=== PATIENT | female | born 1990 | race Caucasian/White ===

== ENCOUNTER 2019-05-29 17:29 | Emergency (ER) | payer MEDICAID ==
[~2019-05-29] VITALS: Ht 165.1 cm; Wt 57.6 kg
[2019-05-29 18:10] LABS: Basophils # (auto) 0 10 ^3/uL (0-0.2); Basophils % (auto) 0.3 % (0.0-2.0); Eosinophils # (auto) 0.1 10 ^3/uL (0-0.8); Eosinophils % (auto) 1.1 % (0.0-7.0); Hematocrit 39.2 % (36.0-46.0); Hemoglobin 12.8 g/dL (12.2-16.2); Lymphocytes # (auto) 2.5 10 ^3/uL (0.4-5.4); Lymphocytes % (auto) 20.7 % (10.0-50.0); Mean Corpuscular Hemoglobin 29.5 pg (28.0-32.0); Mean Corpuscular Hgb Conc. 32.7 g/dL (32.0-36.0); Mean Corpuscular Volume 90.2 fL (80.0-100.0); Neutrophils # (auto) 8.5 10 ^3/uL (1.6-8.6); Neutrophils % (auto) 69.9 % (37.0-80.0); Nucleated Red Blood Cells % 0.1 %; Platelet Count (auto) 329 10^3/uL (140-450); Red Blood Cells 4.34 10^6/uL (4.0-5.20); Red Cell Distribution Width 12.7 % (11.8-14.3); White Blood Cell 12.1 10^3/uL (4.4-10.8)
[2019-05-29 20:00] VITALS: BP 108/64
== END 2019-05-29 20:19 | disposition home or self-care (01) ==
LOC: ER 17:29
DX: O20.0 Threatened abortion (principal); Z3A.08 8 weeks gestation of pregnancy
CPT/HCPCS: 36415; 76801; 84702; 85025

== ENCOUNTER 2019-06-29 10:45 | Day surgery (SDC) | payer MEDICAID ==
[2019-06-26 15:12] LABS: Basophils # (auto) 0 10 ^3/uL (0-0.2); Basophils % (auto) 0.3 % (0.0-2.0); Eosinophils # (auto) 0.1 10 ^3/uL (0-0.8); Eosinophils % (auto) 1.1 % (0.0-7.0); Hematocrit 36.7 % (36.0-46.0); Hemoglobin 12.4 g/dL (12.2-16.2); Lymphocytes # (auto) 2.1 10 ^3/uL (0.4-5.4); Mean Corpuscular Hemoglobin 30.4 pg (28.0-32.0); Mean Corpuscular Hgb Conc. 33.9 g/dL (32.0-36.0); Mean Corpuscular Volume 89.7 fL (80.0-100.0); Neutrophils # (auto) 7.6 10 ^3/uL (1.6-8.6); Neutrophils % (auto) 70.6 % (37.0-80.0); Nucleated Red Blood Cells % 0.1 %; Platelet Count (auto) 300 10^3/uL (140-450); Red Blood Cells 4.09 10^6/uL (4.0-5.20); Red Cell Distribution Width 12.8 % (11.8-14.3); White Blood Cell 10.8 10^3/uL (4.4-10.8)
[2019-06-26 15:22] LABS: Urine Bacteria MANY /hpf (None Seen); Urine Blood TRACE /uL (Negative); Urine Mucus FEW (None Seen); Urine Specific Gravity 1.019 (1.001-1.035); Urine WBC 3 /hpf (0 - 5)
[2019-06-26 15:26] LABS: Partial Thromboplastin Time 26.3 sec (23.64-32.05)
[2019-06-26 15:29] LABS: Albumin 3.7 g/dL (3.4-5.0); Calcium 8.8 mg/dL (8.5-10.1); Potassium 3.4 mmol/L (3.5-5.1)
[2019-06-26 15:32] LABS: BUN/Creatinine Ratio 14.8; Bilirubin, Total 0.2 mg/dL (0.2-1.0); Total Protein 8.4 g/dL (6.4-8.2)
[~2019-06-29] VITALS: Ht 165.1 cm; Wt 58.5 kg
[~2019-06-29 10:45] MED LIST: PREN-96 PO
[2019-06-29] MEDS ORDERED: ceFAZolin 1GM/50ML 50 ML IV ONE (10:58)
[2019-06-29] MEDS ORDERED: ONDANSETRON HCL 4 MG/2 ML VIAL IV PRN (15:30)
[2019-06-29] MEDS ORDERED: LABETALOL HCL 5 MG/ML 4ML SYRINGE IV PRN (15:30)
[2019-06-29] MEDS ORDERED: ePHEDrine SULFATE 50 MG/ML AMP IV PRN (15:30)
[2019-06-29 18:35] VITALS: BP 113/70
== END 2019-06-29 19:10 | disposition home or self-care (01) ==
LOC: SUR 10:45
PROVIDERS: ATTEND Specialist
DX: M53.82 Other specified dorsopathies, cervical region (principal); O34.30 Maternal care for cervical incompetence, unspecified trimester; Z3A.13 13 weeks gestation of pregnancy; Z98.890 Other specified postprocedural states
CPT/HCPCS: 36415; 59320; 76801; 80053; 81001; 85025; 85610; 85730; 86850; 86900; 86901; J0690; J7030

== ENCOUNTER 2019-08-06 14:10 | Inpatient (IN) | payer MEDICAID ==
[~2019-08-06] VITALS: Ht 165.1 cm; Wt 61.7 kg
[2019-08-06 14:53] LABS: Basophils # (auto) 0.1 10 ^3/uL (0-0.2); Basophils % (auto) 0.5 % (0.0-2.0); Eosinophils # (auto) 0.2 10 ^3/uL (0-0.8); Eosinophils % (auto) 0.9 % (0.0-7.0); Hematocrit 33.7 % (36.0-46.0); Hemoglobin 11.5 g/dL (12.2-16.2); Lymphocytes # (auto) 3.3 10 ^3/uL (0.4-5.4); Lymphocytes % (auto) 16.6 % (10.0-50.0); Mean Corpuscular Hemoglobin 30.4 pg (28.0-32.0); Mean Corpuscular Hgb Conc. 34.1 g/dL (32.0-36.0); Mean Corpuscular Volume 89.2 fL (80.0-100.0); Monocytes % (auto) 10.3 % (0.0-12.0); Neutrophils # (auto) 14.2 10 ^3/uL (1.6-8.6); Neutrophils % (auto) 71.7 % (37.0-80.0); Platelet Count (auto) 316 10^3/uL (140-450); Red Blood Cells 3.78 10^6/uL (4.0-5.20); Red Cell Distribution Width 12.8 % (11.8-14.3); White Blood Cell 19.8 10^3/uL (4.4-10.8)
[2019-08-06 15:12] LABS: Albumin 3.4 g/dL (3.4-5.0); Calcium 8.7 mg/dL (8.5-10.1); Potassium 3.2 mmol/L (3.5-5.1)
[2019-08-06 15:15] LABS: Bilirubin, Total 0.2 mg/dL (0.2-1.0); Total Protein 8.1 g/dL (6.4-8.2)
[2019-08-06] MEDS ORDERED: SODIUM CHLORIDE 0.9% 1,000 ML IVB ONE (15:15)
[2019-08-06 15:40] LABS: INR 0.99 (0.9-1.15); Partial Thromboplastin Time 25.9 sec (23.64-32.05)
[2019-08-06] MEDS ORDERED: PROMETHAZINE HCL 25 MG/ML 1ML IV ONE (16:30)
[2019-08-06] MEDS ORDERED: BUTORPHANOL TARTRATE 2 MG/1 ML VIAL IV ONE (16:30)
[2019-08-06] MEDS ORDERED: LACT. RINGERS/OXYTOCIN 20UNITS 1,000 ML IV SCH (16:45)
[2019-08-06 17:13] LABS: Urine Bacteria NONE SEEN /hpf (None Seen); Urine Blood 2+ /uL (Negative); Urine Specific Gravity 1.003 (1.001-1.035); Urine WBC 2 /hpf (0 - 5)
[2019-08-06 17:30] LABS: Alcohol, Urine < 3.0 mg/dL (0-10); Amphetamine Screen, Urine NEGATIVE (NEGATIVE); Barbiturate Scree,Urine NEGATIVE (NEGATIVE); Benzodiazephine Screen, Urine NEGATIVE (NEGATIVE); Cannabinoid Screen, Urine NEGATIVE (NEGATIVE); Cocaine Screen, Urine NEGATIVE (NEGATIVE); Opiate Scree,Urine NEGATIVE (NEGATIVE); Phencyclidine Screen, Urine NEGATIVE (NEGATIVE)
[2019-08-06] MEDS ORDERED: LACTATED RINGER'S 1,000 ML IV SCH (17:42)
[2019-08-06] MEDS ORDERED: WITCH HAZEL-GLYCERIN PAD TOP PRN (17:45)
[2019-08-06] MEDS ORDERED: LIDOCAINE 2%HCL (LOCAL ANESTH.) INJ 20ML MDV ID ONE (17:45)
[2019-08-06] MEDS ORDERED: DERMOPLAST 60ML BOTTLE TOP PRN (17:45)
[2019-08-06] MEDS ORDERED: PHISODERM TOP SOLN 240ML BTL TOP PRN (17:45)
[2019-08-06] MEDS: IBUPROFEN 600 MG TAB PO PRN (19:04)
--- NOTE | 2019-08-06 20:01 | NUR ---
Call placed to [facility], spoke with Lovely
--- NOTE | 2019-08-06 20:30 | NUR ---
Ambulation: Patient OOB with standby assistance by RN. Patient ambulated to bathroom with steady gait. Patient able to void second time 600ml without difficulty, Patient had first void on bedpan at 1845. Pericare teaching provided with returned demonstration by patient. Clean gown provided and bed linen changed. Patient ambulated back to bed with steady gait and no distress noted.
--- NOTE | 2019-08-06 21:00 | NUR ---
Patient offered to stay in [facility] or transfer to Med/Surg floor. Patient wishes to stay in her current room.
--- NOTE | 2019-08-06 21:30 | NUR ---
Fetus Assessment: Per Patient request fetus to stay in patients room for assessment. Footprints obtained and measurements, completed. One ID band placed on Fetus, parent bands given to mother.
--- NOTE | 2019-08-06 21:57 | NUR ---
Social service consult placed
--- NOTE | 2019-08-06 22:15 | NUR ---
Fetus taken to Nursery Fetus to nursery vis open crib fetus covered in blanket, pictures taken per policy.
--- NOTE | 2019-08-06 22:45 | NUR ---
Fetus taken back to patients room per patient request.
[2019-08-06 23:00] VITALS: BP 102/58
--- NOTE | 2019-08-07 01:00 | NUR ---
Rounds Patient stated, "I would like to go to bed now" and that she wanted this RN to "take the baby now". This RN asked if she was done bonding patient stated, "yes".
[2019-08-07 03:30] VITALS: BP 97/54
[2019-08-07 07:17] VITALS: BP 104/54
--- NOTE | 2019-08-07 09:45 | NUR ---
Ileana Spann at PT bedside. This RN speaks to Ileana and she verbalizes she is going to provide resources for PT. Addendum: 08/07/19 at 0955 by DAWNA LUX RN Nirmal WILKINSON spoke with Ileana ZapienCommunity Nutrition Educator.
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
--- NOTE | 2019-08-07 09:56 | NUR ---
IV removal IV DC'd in Right FA with clean sterile technique, catheter fully intact. Pressure dressing applied to site. Patient tolerated well. NOTE:
--- NOTE | 2019-08-07 10:26 | NUR ---
This RN calls OB clinic and changes Follow up visit to August 10 at 230 pm. PT notified and provided copies of changed visit.
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
[2019-08-07 11:00] VITALS: BP 106/60
[2019-08-07] MEDS: IBUPROFEN 600 MG TAB PO PRN (11:38)
--- NOTE | 2019-08-07 11:40 | NUR ---
Dr Gordon informed of telepsych consult and that per Psychiatrist PT may benefit from Trazodone for sleep, Dr Gordon orders Trazodone 50 mg PO QHS prn sleep, #50, no refills.
--- NOTE | 2019-08-07 11:49 | NUR ---
24 hr Jarred called on [address] for Trazodone 50mg PO qhs prn for insomnia #30 tab. Verbal read back by pharmacist.
--- NOTE | 2019-08-07 12:00 | NUR ---
PT given hand out on new prescription for Trazodone 50mg PO qhs PRN insomnia. Discussed risks and benefits of medication and medication called in to 24 hr Carmen on [address] and [address]. PT verbalizes understanding.
[2019-08-07 12:15] VITALS: BP 106/60
--- NOTE | 2019-08-07 12:15 | NUR ---
Discharge: Patient taken to vehicle via ambulatory with all personal belongings, accompanied by staff and family member. No distress noted at time of departure, no adverse changes in status since initial assessment.
[2019-08-08 04:07] LABS: RPR Non Reactive (Non Reactive)
== END 2019-08-07 12:15 | disposition home or self-care (01) | DRG 560 ==
LOC: ER 14:10 → LDRP 16:16
PROVIDERS: ADMIT Specialist; ATTEND Specialist
PROC: 0UCC7ZZ Extirpation of Matter from Cervix, Via Natural or Artificial Opening (ICD-10-PCS; principal; 2019-08-06)
PROC: 10E0XZZ Delivery of Products of Conception, External Approach (ICD-10-PCS; 2019-08-06)
DX: O03.9 Complete or unspecified spontaneous abortion without complication (principal); O34.32 Maternal care for cervical incompetence, second trimester; O32.1XX0 Maternal care for breech presentation, not applicable or unspecified; Z37.1 Single stillbirth; Z3A.19 19 weeks gestation of pregnancy; Z82.49 Family history of ischemic heart disease and other diseases of the circulatory system
CPT/HCPCS: 36415; 59409; 76805; 80053; 80307; 81001; 83735; 84112; 84702; 85025; 85610; 85730; 86592; 86850; 86900; 86901; 96360; 96375; G0378

== ENCOUNTER → 2020-06-20 | Outpatient (CLI) | payer MEDICAID | END | disposition home or self-care (01) | LOC: LAB 15:19 | PROVIDERS: ATTEND Specialist | DX: N88.3 Incompetence of cervix uteri (principal) | CPT/HCPCS: 86850; 86900; 86901 ==

== ENCOUNTER → 2020-06-23 | Day surgery (SDC) | payer MEDICAID ==
[~2020-06-23] VITALS: Ht 167.6 cm; Wt 59.0 kg
[~2020-06-23] MED LIST changes: +LACTATED RINGER'S 1,000 ML IV SCH; +ONDANSETRON HCL 4 MG/2 ML VIAL IV PRN; +ceFAZolin 1GM/50ML 50 ML IV ONE; +ePHEDrine SULFATE 50 MG/ML AMP IV PRN; +fentaNYL CITRATE 100 MCG/2 ML VL IV PRN
[2020-06-23 16:30] VITALS: BP 112/57
== END | disposition home or self-care (01) ==
LOC: SUR 10:53
PROVIDERS: ATTEND Specialist
DX: O34.31 Maternal care for cervical incompetence, first trimester (principal); O03.9 Complete or unspecified spontaneous abortion without complication; Z87.440 Personal history of urinary (tract) infections; Z20.822 Contact with and (suspected) exposure to COVID-19; Z98.890 Other specified postprocedural states; Z79.899 Other long term (current) drug therapy
CPT/HCPCS: 59320; 86850; 86900; 86901; J0690; U0003

== ENCOUNTER 2020-07-11 20:28 | Inpatient (IN) | payer MEDICAID ==
[~2020-07-11] VITALS: Ht 165.1 cm; Wt 59.4 kg
[~2020-07-11 20:28] MED LIST changes: -LACTATED RINGER'S 1,000 ML IV SCH; -ONDANSETRON HCL 4 MG/2 ML VIAL IV PRN; -ceFAZolin 1GM/50ML 50 ML IV ONE; -ePHEDrine SULFATE 50 MG/ML AMP IV PRN; -fentaNYL CITRATE 100 MCG/2 ML VL IV PRN
[2020-07-11 22:23] LABS: Basophils # (auto) 0.1 10 ^3/uL (0-0.2); Basophils % (auto) 0.4 % (0.0-2.0); Eosinophils # (auto) 0.2 10 ^3/uL (0-0.8); Hematocrit 34.3 % (36.0-46.0); Hemoglobin 11.8 g/dL (12.2-16.2); Lymphocytes # (auto) 2.8 10 ^3/uL (0.4-5.4); Lymphocytes % (auto) 15.7 % (10.0-50.0); Mean Corpuscular Hemoglobin 30.5 pg (28.0-32.0); Mean Corpuscular Hgb Conc. 34.4 g/dL (32.0-36.0); Mean Corpuscular Volume 88.6 fL (80.0-100.0); Monocytes # (auto) 1.9 10 ^3/uL (0-1.3); Neutrophils # (auto) 12.6 10 ^3/uL (1.6-8.6); Neutrophils % (auto) 71.9 % (37.0-80.0); Platelet Count (auto) 327 10^3/uL (140-450); Red Blood Cells 3.88 10^6/uL (4.0-5.20); Red Cell Distribution Width 12.9 % (11.8-14.3); White Blood Cell 17.5 10^3/uL (4.4-10.8)
[2020-07-11 22:38] LABS: Albumin 3.3 g/dL (3.4-5.0); Calcium 8.9 mg/dL (8.5-10.1); Potassium 3.2 mmol/L (3.5-5.1)
[2020-07-11 22:41] LABS: BUN/Creatinine Ratio 17.4; Bilirubin, Total 0.2 mg/dL (0.2-1.0)
[2020-07-11] MEDS ORDERED: PHISODERM TOP SOLN 240ML BTL TOP PRN (23:00)
[2020-07-11] MEDS ORDERED: WITCH HAZEL-GLYCERIN PAD TOP PRN (23:00)
[2020-07-11] MEDS ORDERED: ONDANSETRON HCL 4 MG/2 ML VIAL IV PRN (23:00)
[2020-07-11] MEDS ORDERED: DERMOPLAST 60ML BOTTLE TOP PRN (23:00)
[2020-07-11] MEDS ORDERED: LACTATED RINGER'S 1,000 ML IV SCH (23:00)
[2020-07-11] MEDS: MORPHINE SULF INJ 2 MG/ML SYRINGE 1ML IV PRN (23:31)
[2020-07-11 23:50] LABS: INR 0.99 (0.9-1.15); Partial Thromboplastin Time 24.4 sec (23.0-31.2)
[2020-07-12] LABS: Urine Amorphous Crystal FEW /hpf (None Seen); Urine Bacteria FEW /hpf (None Seen); Urine Blood Negative /uL (Negative); Urine Specific Gravity 1.016 (1.001-1.035); Urine WBC 7 /hpf (0 - 5)
[2020-07-12 00:17] LABS: Alcohol, Urine < 3.0 mg/dL (0-10); Amphetamine Screen, Urine NEGATIVE (NEGATIVE); Barbiturate Scree,Urine NEGATIVE (NEGATIVE); Benzodiazephine Screen, Urine NEGATIVE (NEGATIVE); Cannabinoid Screen, Urine POSITIVE (NEGATIVE); Cocaine Screen, Urine NEGATIVE (NEGATIVE); Phencyclidine Screen, Urine NEGATIVE (NEGATIVE)
[2020-07-12 00:24] LABS: Opiate Scree,Urine NEGATIVE (NEGATIVE)
[2020-07-12] MEDS ORDERED: ceFAZolin 1GM/50ML 50 ML IV SCH ×2 (01:00→06:00)
[2020-07-12] MEDS ORDERED: LACT. RINGERS/OXYTOCIN 20UNITS 1,000 ML IV ONE (01:32)
[2020-07-12] MEDS: MORPHINE SULF INJ 2 MG/ML SYRINGE 1ML IV PRN (01:36)
[2020-07-12] MEDS ORDERED: OXYTOCIN 20 UNT in SODIUM CHLORIDE 0.9% 1,000 ML IV ONE (01:45)
[2020-07-12] MEDS ORDERED: MORPHINE SULF INJ 2 MG/ML SYRINGE 1ML IV PRN (03:00)
[2020-07-12 06:56] VITALS: BP 93/52
[2020-07-12] MEDS ORDERED: ACETAMINOPHEN 325 MG TAB PO PRN (09:15)
[2020-07-12] MEDS ORDERED: IBUPROFEN 600 MG TAB PO PRN (09:15)
[2020-07-12] MEDS: ceFAZolin 1GM/50ML 50 ML IV SCH ×2 (11:19→19:01)
[2020-07-12 11:24] VITALS: BP 95/52
[2020-07-12 14:36] VITALS: BP 101/52
[2020-07-12 19:00] VITALS: BP 104/59
[2020-07-13 07:06] LABS: RPR Non Reactive (Non Reactive)
== END 2020-07-12 20:27 | disposition home or self-care (01) | DRG 560 ==
LOC: ER 20:30 → LDRP 22:15 → OBSVTOIN 22:15
PROVIDERS: ADMIT Obstetrics & Gynecology; ATTEND Obstetrics & Gynecology
PROC: 10E0XZZ Delivery of Products of Conception, External Approach (ICD-10-PCS; principal; 2020-07-12)
PROC: 0UCC7ZZ Extirpation of Matter from Cervix, Via Natural or Artificial Opening (ICD-10-PCS; 2020-07-12)
DX: O03.9 Complete or unspecified spontaneous abortion without complication (principal); O34.32 Maternal care for cervical incompetence, second trimester; O36.4XX0 Maternal care for intrauterine death, not applicable or unspecified; Z3A.16 16 weeks gestation of pregnancy
CPT/HCPCS: 36415; 76805; 76817; 80053; 80307; 81001; 84112; 84702; 85025; 85610; 85730; 86592; 86850; 86900; 86901; 87426; 94760; 96360; 96361; 96365; 96366; 96374; G0378; J0690; J2590

== ENCOUNTER 2024-01-30 17:52 | Emergency (ER) | payer MEDICAID ==
[~2024-01-30] VITALS: Ht 165.1 cm; Wt 63.6 kg
[2024-01-30 19:02] VITALS: BP 115/76; PULSE 84; RESP 16; TEMP 98.6; O2SAT 98
== END 2024-01-30 19:07 | disposition left against medical advice (07) ==
LOC: EDBD 17:52 → ER 17:54
DX: M25.562 Pain in left knee (principal); M25.561 Pain in right knee; Z53.21 Procedure and treatment not carried out due to patient leaving prior to being seen by health care provider; V89.2XXA Person injured in unspecified motor-vehicle accident, traffic, initial encounter; Y93.89 Activity, other specified; Y92.89 Other specified places as the place of occurrence of the external cause; Y99.8 Other external cause status

== ENCOUNTER 2024-02-01 11:37 | Emergency (ER) | payer MEDICAID, OTHER ==
[~2024-02-01] VITALS: Ht 165.1 cm; Wt 63.4 kg
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
[2024-02-01 12:33] VITALS: BP 134/72; PULSE 99; RESP 18; TEMP 99.3; O2SAT 98
[2024-02-01] MEDS ORDERED: METH-1182 PO (12:51)
[2024-02-01] MEDS ORDERED: IBUP-1454 PO (12:51)
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
== END 2024-02-01 12:56 | disposition home or self-care (01) ==
LOC: ER 11:37
DX: S29.012A Strain of muscle and tendon of back wall of thorax, initial encounter (principal); S80.01XA Contusion of right knee, initial encounter; F12.90 Cannabis use, unspecified, uncomplicated; V49.9XXA Car occupant (driver) (passenger) injured in unspecified traffic accident, initial encounter; Y93.89 Activity, other specified; Y92.89 Other specified places as the place of occurrence of the external cause; Y99.8 Other external cause status
CPT/HCPCS: 71101